=== PATIENT | male | born 1995 ===

== ENCOUNTER 2017-04-13 16:34 | Emergency (ER) | payer MEDICAID ==
[2017-04-13] MEDS: DEXAMETHASONE 10 MG/ML 1 ML INJ IM (20:27)
[2017-04-13] MEDS: KETOROLAC 60 MG INJ IM (20:28)
== END 2017-04-13 20:52 | disposition home or self-care (01) ==
LOC: FTE 16:34
DX: J02.9 Acute pharyngitis, unspecified (principal)
CPT/HCPCS: 96372; 99284-25